=== PATIENT | female | born 1965 | race Caucasian/White ===

== ENCOUNTER 2018-04-02 14:01 | Emergency (ER) | payer OTHER ==
[~2018-04-02] VITALS: Ht 165.1 cm; Wt 107.0 kg
[2018-04-02] MEDS ORDERED: CLONAZEPAM 1 MG1 M1 PO (14:19)
[2018-04-02] MEDS ORDERED: PHENOBARBITAL60 MG PO (14:19)
[2018-04-02 14:42] LABS: ABSOLUTE LYMPHOCYTES 1.3 thou/uL (0.8-5.3); ABSOLUTE MONOCYTES 0.4 thou/uL (0.0-1.2); BASOPHILS 0.4 %; EOSINOPHILS 0.2 %; HEMATOCRIT 41.9 % (37.0-47.0); HEMOGLOBIN 13.8 gm/dL (12.0-15.0); LYMPHOCYTES 17.2 %; MCH 30.1 pg (26.0-34.0); MCV 91.2 fL (80.0-100.0); MONOCYTES 4.6 %; MPV 7.6 fl. (7.2-11.1); NUCLEATED RBCS 0 /100WBC; PLATELET COUNT* 246 thou/uL (150-400); POLYS 77.6 %; RBC 4.59 mil/uL (4.20-5.00); RDW-CV 13.2 % (10.5-14.5); WBC 7.7 thou/uL (4.0-11.0)
[2018-04-02 15:29] LABS: CALCIUM 8.9 mg/dL (8.5-10.1); CREATININE 0.7 mg/dL (0.6-1.3); POTASSIUM 4.2 mmol/L (3.5-5.1)
[2018-04-02 15:33] LABS: ALBUMIN 3.8 g/dL (3.4-5.0); TOTAL BILIRUBIN 0.2 mg/dL (<0.1-1.0); TOTAL PROTEIN 7.1 g/dL (6.4-8.2)
[2018-04-02 16:00] LABS: URINE BILIRUBIN NEGATIVE (Negative); URINE BLOOD TRACE (Negative); URINE CLARITY CLEAR; URINE COLOR YELLOW; URINE GLUCOSE-RANDOM NEGATIVE (Negative); URINE KETONES NEGATIVE (Negative); URINE LEUKOCYTES-REFLEX 1+ (Negative); URINE PROTEIN NEGATIVE (Negative); URINE UROBILINOGEN 0.2 E.U./dl (0.2-1.0)
[2018-04-02 16:05] LABS: URINE NITRITE-REFLEX POSITIVE (Negative)
[2018-04-02 16:09] LABS: BACTERIA-REFLEX >30 Many /HPF (None Seen); CASTS None Seen /LPF (None Seen); SQUAMOUS NONE SEEN /LPF (0-3); URINE RBC 0-2 Rare /HPF (0-2); URINE WBC-REFLEX None Seen /HPF (0-5)
[2018-04-02 16:10] LABS: CRYSTALS None Seen /LPF (None Seen)
[2018-04-02] MEDS ORDERED: MOBIC15 MG PO (17:33)
[2018-04-02] MEDS ORDERED: NORCO 5-325 TA1 EACH PO (17:33)
[2018-04-02] MEDS ORDERED: CARAFATE 1 GM TA1 GM PO (17:46)
[2018-04-02] MEDS ORDERED: PREVACID30 MG PO (17:46)
[2018-04-02 18:11] VITALS: BP 152/92
--- NOTE | 2018-04-04 15:32 | EKG ---
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 : 1965 Requested By: Faye Faria Order Number: [id number] MD: Richard Mello Measurements Intervals [place] Rate: 107 P: 2 CO: 132 QRS: -16 QRSD: 93 T: 32 QT: 318 QTc: 425 Interpretive Statements Sinus tachycardia Borderline left axis deviation Baseline wander in lead(s) V3 No previous ECG available for comparison Electronically Signed On 04-04-2018 15:32:46 PNEUMATIC SYSTEM CONVEYOR OPERATOR by Richard Mello [email or web address] <ELECTRONICALLY SIGNED> By: Richard Mello MD, [facility] 04/04/18 1532 1409 08 Richard Mello MD, FACC /EPI
== END 2018-04-02 18:13 | disposition home or self-care (01) ==
LOC: M.ERS 14:01
PROVIDERS: Personal Emergency Response Attendant
DX: S22.21XA Fracture of manubrium, initial encounter for closed fracture (principal); S00.531A Contusion of lip, initial encounter; S00.33XA Contusion of nose, initial encounter; R56.9 Unspecified convulsions; R07.89 Other chest pain; W18.39XA Other fall on same level, initial encounter; Y93.89 Activity, other specified; Y92.89 Other specified places as the place of occurrence of the external cause; Y99.8 Other external cause status